=== PATIENT | male | born 1995 | race African-American/Black ===

== ENCOUNTER 2022-03-30 22:24 | Emergency (ER) | payer OTHER, BC ==
[2022-03-30] MEDS ORDERED: Ketorolac Tromethamine 60 MG/2 ML VIAL ONE (23:15)
== END 2022-03-31 00:54 | disposition home or self-care (01) ==
LOC: NAV ERS 22:24
DX: S00.83XA Contusion of other part of head, initial encounter (principal); W50.0XXA Accidental hit or strike by another person, initial encounter; Y93.67 Activity, basketball
CPT/HCPCS: 70486; 96372; J1885